=== PATIENT | male | born 1950 | race Caucasian/White ===

== ENCOUNTER 2018-09-02 14:48 | Emergency (ER) | payer OTHER, MEDICARE ==
[~2018-09-02] VITALS: Ht 180.3 cm; Wt 91.6 kg
[2018-09-02 16:33] VITALS: BP 149/91
[2018-09-02] MEDS ORDERED: LIDOCAINE 1% HCL (LOCAL ANESTH.) INJ 20ML MDV IJ ONE (17:00)
[2018-09-02] MEDS ORDERED: LIDOCAINE 2% (LOCAL ANESTH.) PF 5ml SDV ONE (17:06)
[2018-09-02] MEDS ORDERED: BACITRACIN TOP OINT 1 UD PKG TOP ONE (18:30)
== END 2018-09-02 18:29 | disposition home or self-care (01) ==
LOC: ER 14:48
DX: S61.210A Laceration without foreign body of right index finger without damage to nail, initial encounter (principal); E78.5 Hyperlipidemia, unspecified; I10 Essential (primary) hypertension; F12.10 Cannabis abuse, uncomplicated; W26.9XXA Contact with unspecified sharp object(s), initial encounter; Y93.89 Activity, other specified; Y99.8 Other external cause status; Y92.89 Other specified places as the place of occurrence of the external cause
CPT/HCPCS: 12002; 73140; 99283; J2001